=== PATIENT | female | born 1995 | race Caucasian/White ===

== ENCOUNTER 2019-09-17 15:47 | Emergency (ER) | payer OTHER ==
[~2019-09-17] VITALS: Ht 167.6 cm; Wt 104.3 kg
[2019-09-17] MEDS ORDERED: VENTOLIN HFA18 GM INH (16:06)
[2019-09-17] MEDS ORDERED: ADVAIR 250-501 EACH INH (16:06)
[2019-09-17] MEDS ORDERED: SINGULAIR4 M1 PO (16:06)
--- NOTE | 2019-09-17 19:05 | EKG ---
[facility] [address] [place], [place] [address] Signed Normal sinus rhythm Cannot rule out Anterior infarct , age undetermined Abnormal ECG No previous ECGs available Confirmed by BUCK BAILEY DO ([id number]) on 09/17/2019 7:04:59 PM Electronically Signed By: BUCK BAILEY DO 09/17/19 1905 PATIENT NAME: SUAD TANG Electrocardiogram DATE OF : 89 PHYSICIAN: BUCK BAILEY DO REPORT #: [id number] REPORT IS CONFIDENTIAL AND NOT TO BE RELEASED WITHOUT AUTHORIZATION
== END 2019-09-17 18:05 | disposition home or self-care (01) ==
LOC: ED 15:47
DX: G43.909 Migraine, unspecified, not intractable, without status migrainosus (principal); F17.200 Nicotine dependence, unspecified, uncomplicated; Z79.899 Other long term (current) drug therapy; J45.909 Unspecified asthma, uncomplicated
CPT/HCPCS: 70450; 80053; 81001; 84484; 84703; 85025; 93005; 93010; 96361; 96374; 96375; 99284-25; 99406; J1200; J2765; J7030

== ENCOUNTER 2022-06-15 22:28 | Emergency (ER) | payer OTHER ==
[~2022-06-15] VITALS: Ht 167.6 cm; Wt 104.3 kg
[~2022-06-15 22:28] MED LIST: ADVAIR 250-501 EACH INH; SINGULAIR4 M1 PO; VENTOLIN HFA18 GM INH
--- OUTSIDE RECORDS SUMMARY | 2022-06-15 22:31 | XMS ---
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 E.Lara VISIT COUNT (12 MO.) [address] TOTAL 4 NOTE: Visits indicate total known visits. ED/UCC VISIT TRACKING (12 MO.) 06/15/2022 22:29 [facility] [place] TYPE: Emergency COMPLAINT: - SEIZURE 06/11/2022 19:26 [facility] [employer] [place] TYPE: Emergency DIAGNOSES: - FACIAL NUMBNESS ARM PAIN - Weakness - Paresthesia of skin 12/11/2021 12:21 [facility] [place] TYPE: Emergency DIAGNOSES: - Right lower quadrant pain - Acute cystitis without hematuria - PELVIC AND LOW BACK PAIN 07/26/2021 22:50 [facility] [place] TYPE: Emergency DIAGNOSES: - difficulty breathing - Other chest pain INPATIENT VISIT TRACKING (12 MO.) No inpatient visits to display in this time frame [email or web address]
[2022-06-15] MEDS ORDERED: SERTRALINE HCL50 MG PO (23:13)
== END 2022-06-16 01:39 | disposition home or self-care (01) ==
LOC: ED 22:28
DX: R56.9 Unspecified convulsions (principal); J45.909 Unspecified asthma, uncomplicated; G43.909 Migraine, unspecified, not intractable, without status migrainosus; F17.200 Nicotine dependence, unspecified, uncomplicated
CPT/HCPCS: 36415; 80053; 81001; 85025; 99284